=== PATIENT | male | born 1970 | race Caucasian/White ===

== ENCOUNTER 2021-11-06 23:21 | Emergency (ER) | payer BC ==
[2021-11-07 00:07] VITALS: PULSE 79; RESP 16; TEMP 98
[2021-11-07 00:09] VITALS: BP 170/99
--- NOTE | 2021-11-07 01:25 | ED ---
Recheck HPI - General Chief Complaint: Recheck/Abnormal Lab/Rx Stated Complaint: Covid Test Source: patient, RN notes reviewed Mode of arrival: ambulatory Limitations: no limitations - History of Present Illness Initial Comments: 2285 Patient presents for COVID-19 testing [place]. He denies any symptomology. No runny nose. No No headache, no fever or chills, no changes in vision or hearing, no sore throat or difficulty with speech, no neck pain, no chest pain or shortness of breath, no abdominal pain, no nausea or vomiting, no changes in urination or bowel movements, no numbness or tingling, no extremity pain, no skin rashes or lesions. - Related Data Allergies Allergy/AdvReac Type Severity Reaction Status Date / Time No Known Allergies Allergy Verified 11/07/21 00:07 Review of Systems ROS Statement: Those systems with pertinent positive or pertinent negative responses have been documented in the HPI. ROS Other: All systems not noted in ROS Statement are negative. Past Medical History Past Medical History: Hypertension History of Any Multi-Drug Resistant Organisms: None Reported Past Surgical History: No Surgical Hx Reported Past Psychological History: No Psychological Hx Reported Smoking Status: Never smoker Past Alcohol Use History: None Reported Past Drug Use History: None Reported General Exam Limitations: no limitations Course Vital Signs 11/07/21 00:04 Temperature 98 F Pulse Rate 79 Respiratory 16 Rate Blood Pressure 170/99 O2 Sat by Pulse 99 Oximetry Medical Decision Making - Lab Data Lab Results 11/07/21 Range/Units 00:12 Coronavirus (PCR) Not Detected (Not Detectd) Disposition Referrals: None,Stated [Primary Care Provider] - 1-2 days
--- NOTE | 2021-11-07 02:15 | ED ---
Recheck HPI - General Chief Complaint: Recheck/Abnormal Lab/Rx Stated Complaint: Covid Test Source: patient, RN notes reviewed Mode of arrival: ambulatory Limitations: no limitations - Related Data Allergies Allergy/AdvReac Type Severity Reaction Status Date / Time No Known Allergies Allergy Verified 11/07/21 00:07 Review of Systems ROS Statement: Those systems with pertinent positive or pertinent negative responses have been documented in the HPI. ROS Other: All systems not noted in ROS Statement are negative. Past Medical History Past Medical History: Hypertension History of Any Multi-Drug Resistant Organisms: None Reported Past Surgical History: No Surgical Hx Reported Past Psychological History: No Psychological Hx Reported Smoking Status: Never smoker Past Alcohol Use History: None Reported Past Drug Use History: None Reported General Exam Limitations: no limitations Course Vital Signs 11/07/21 00:04 Temperature 98 F Pulse Rate 79 Respiratory 16 Rate Blood Pressure 170/99 O2 Sat by Pulse 99 Oximetry Medical Decision Making - Lab Data Lab Results 11/07/21 Range/Units 00:12 Coronavirus (PCR) Not Detected (Not Detectd) Disposition Clinical Impression: Encounter for screening for COVID-19 Disposition: [facility] Additional Instructions: Follow-up with your regular physician as directed. Return to the ER immediately if any symptoms worsen, new symptoms arise, or any other problems develop. Referrals: None,Stated [Primary Care Provider] - 1-2 days Time of Disposition: 00:49
== END 2021-11-07 01:13 ==
LOC: EC 23:21
DX: Z11.52 Encounter for screening for COVID-19 (principal); Z20.822 Contact with and (suspected) exposure to COVID-19
CPT/HCPCS: 87635; 99282